=== PATIENT | female | born 1965 | race Two or more races ===

== ENCOUNTER 2018-08-04 08:17 | Day surgery (SDC) | payer OTHER ==
[~2018-08-04] VITALS: Ht 160 cm; Wt 72.6 kg
[2018-08-04] VITALS (8 sets, daily range): BP systolic 128–156; BP diastolic 53–89
[~2018-08-04 08:17] MED LIST: LR 1000ml 1,000 ML IVLG SCH
[2018-08-04] MEDS ORDERED: Propofol 200mg/20ml IV ONE (09:00)
[2018-08-04] MEDS ORDERED: Lidocaine 1% MPF 10mg/ml 5ml ONE (09:00)
[2018-08-04] MEDS ORDERED: LR 1000ml ONE (09:00)
[2018-08-04] MEDS ORDERED: METFORMIN HCL1000 M1 ORAL (09:16)
[2018-08-04] MEDS ORDERED: BENAZEPRIL HCL40 MG ORAL (09:20)
[2018-08-04] MEDS ORDERED: GLIPIZIDE5 MG ORAL (09:20)
[2018-08-04] MEDS ORDERED: ASPIR-LOW81 MG ORAL (09:20)
[2018-08-04] MEDS ORDERED: FERROUS SULFAT325 MG ORAL (09:20)
[2018-08-04] MEDS ORDERED: ZANTAC150 MG ORAL (09:21)
[2018-08-04] MEDS ORDERED: ATORVASTATIN CA40 MG ORAL (09:21)
--- NOTE | 2018-08-04 09:30 | Short Stay Surgery H&P ---
History of Present Illness History of Present Illness Chief Complaint Abdominal pains and GERDS HPI Bindu Moe is a 53 year old female who was admitted on for GERD/abdominal pains Patient History Allergies: Coded Allergies: No Known Allergies (Unverified , 08/03/18) PAST MEDICAL HISTORY: (1) Hypertension (2) H/O shoulder surgery (3) Diabetes Medication History Scheduled Aspirin* (Aspir-Low*), 81 MG ORAL DAILY, (Reported) Atorvastatin Calcium* (Atorvastatin Calcium*), 40 MG ORAL BEDTIME, (Reported) Benazepril Hcl* (Benazepril Hcl*), 40 MG ORAL DAILY, (Reported) Ferrous Sulfate* (Ferrous Sulfate*), 325 MG ORAL DAILY, (Reported) Glipizide* (Glipizide*), 4 MG ORAL DAILY, (Reported) Metformin Hcl* (Metformin Hcl*), 1,000 MG ORAL BID, (Reported) Ranitidine Hcl* (Zantac*), 150 MG ORAL DAILY, (Reported) Review of Systems Cardiovascular: Reports: no symptoms, hypertension Respiratory: Reports: no symptoms Skeletal: Reports: trauma Gastrointestinal: Reports: gastro esophageal reflux disease Genitourinary: Reports: no symptoms Neurologic: Reports: no symptoms Endocrine: Reports: diabetes - type 2 Hematologic: Reports: no symptoms Physical Exam Vital Signs Last Vital Signs Date Time Temp Pulse Resp B/P (MAP) Pulse Ox O2 Delivery O2 Flow Rate FiO2 08/04/18 09:24 Room Air 08/04/18 09:11 97.4 60 18 154/88 99 Labs Laboratory Tests Test 08/04/18 09:05 Urine HCG, Qualitative Pending Skin: normal HENT: normal Heart: normal Lungs: normal Abdomen: abnormal Extremities: normal Genitourinary: normal Plan Plan of Care Upper GI endoscopy and biopsy Preop Interventions None Summary of Findings see the reports Attestation Are the patient's medical conditions optimized for surgery? Attestation Response: yes Jasper Lazaro MD Aug 04, 2018 09:30
--- NOTE | 2018-08-04 09:31 | Pre-Procedure Note/Attestation ---
Pre-Procedure Note/Attestation Complete Prior to Procedure Planned Procedure: left Procedure Narrative: Examination of the upper GI tract via endoscopy Indications for Procedure Pre-Operative Diagnosis: R/O peptic ulcer/gastritis Attestation I attest that I discussed the nature of the procedure; its benefits; risks and complications; and alternatives (and the risks and benefits of such alternatives ), prior to the procedure, with the patient (or the patient's legal mechanical service representative). I attest that, if there was a reasonable possibility of needing a blood transfusion, the patient (or the patient's legal mechanical service representative) was given the [facility] standardized written summary, pursuant to the [place] Blood Safety Act ([place] Health and Safety Code # 1645, as amended). I attest that I re-evaluated the patient just prior to the surgery and that there has been no change in the patient's H&P, except as documented below: Jasper Lazaro MD Aug 04, 2018 09:31
--- NOTE | 2018-08-04 09:43 | Endoscopy Procedure Note ---
Endoscopy Procedure Note General Indication for Procedure: Abdominal pains/GERDS Procedures Performed: EGD - Mild gastritis with evidence of bile in stomach, otherwise normal upper GI endoscopy. Biopsy obtained from gastric body. Specimen: yes Pt Tolerated Procedure Well: Yes Estimated Blood Loss: none Anesthesia Anesthesiologist: Dr. Garcia Anesthesia: moderate sedation Medications Medication Given: see anesthesia record Inserted Devices Implant(s) used?: No Quality Quality of Bowel Preparation: Excellent Was there any complications?: No GI Core Measures 50 yrs or older w/o bx or poly: Not Applicable 10yrs. F/U not recommended: Not Applicable If not recommended, why?: Med reason:<3 yrs.: System Reason:<3 yrs.: Jasper Lazaro MD Aug 04, 2018 09:43
--- NOTE | 2018-08-04 09:44 | Discharge Instructions ---
Discharge Instructions Discharge Instructions Follow up with: See the doctor in office after 2 weeks For Congestive Heart Failure Reminder Report to your physician any weight gain of 5 pounds or more in one week. Jasper Lazaro MD Aug 04, 2018 09:44
--- NOTE | 2018-08-04 10:00 | Anethesia Preoperative Eval ---
Anesthesia Pre-op PMH/ROS General Date of Evaluation: Aug 04, 2018 Time of Evaluation: 09:18 Anesthesiologist: osiel ASA Score: ASA 3 Mallampati Score Class I : Soft palate, uvula, fauces, pillars visible Class II: Soft palate, uvula, fauces visible Class III: Soft palate, base of uvula visible Class IV: Only hard plate visible Mallampati Classification: Class II Surgeon: david Diagnosis: gerd Surgical Procedure: egd Anesthesia History: none Social History: smoking - nonsmoker Family History: no anesthesia problems Allergies: Coded Allergies: No Known Allergies (Unverified , 08/03/18) Medications: see eMAR Patient NPO?: Yes Past Medical History Cardiovascular: Reports: HTN, other - hypercholesterolemia Endocrine: Reports: DM PSxH Narrative: x 3 Anesthesia Pre-op Phys. Exam Physician Exam Last Vital Signs Date Time Temp Pulse Resp B/P (MAP) Pulse Ox O2 Delivery O2 Flow Rate FiO2 08/04/18 09:24 Room Air 08/04/18 09:11 97.4 60 18 154/88 99 Constitutional: NAD Neurologic: CN 2-12 intact Cardiovascular: RRR Respiratory: CTA Gastrointestinal: S/NT/ND Airway Exam Mallampati Score: Class II MO: full Neck: flexible TMD: 2fb ROM: full Dentures: lower Anesthesia Pre-op A/P Labs Urine Test Test 08/04/18 09:05 Urine HCG, Qualitative Negative (NEGATIVE) Risk Assessment & Plan Assessment: asa3 Plan: mac Status Change Before Surgery: No Pre-Antibiotics Drug: Emily Martins MD Aug 04, 2018 10:00
--- NOTE | 2018-08-04 10:01 | Immediate Post-Op Evaluation ---
Immediate Post-Op Evalulation Immediate Post-Op Evalulation Procedure: egd w/bx Date of Evaluation: Aug 04, 2018 Time of Evaluation: 10:02 IV Fluids: 250ml lr Blood Products: none Estimated Blood Loss: negligible Blood Pressure Systolic: 156 Blood Pressure Diastolic: 82 Pulse Rate: 79 Respiratory Rate: 18 O2 Sat by Pulse Oximetry: 99 Temperature (Fahrenheit): 98.2 Pain Score (1-10): 0 Nausea: No Vomiting: No Complications none Patient Status: awake, reacts, patent Hydration Status: adequate Drug: Emily Martins MD Aug 04, 2018 10:01
--- NOTE | 2018-08-04 10:04 | 48 Hour Post Anesthesia Eval ---
Post Anesthesia Evaluation Procedure: egd w/bx Date of Evaluation: Aug 04, 2018 Time of Evaluation: 10:04 Blood Pressure Systolic: 155 0: 82 Pulse Rate: 68 Respiratory Rate: 18 Temperature (Fahrenheit): 98.2 O2 Sat by Pulse Oximetry: 99 Airway: patent Nausea: No Vomiting: No Pain Intensity: 0 Hydration Status: adequate Cardiopulmonary Status: stable Mental Status/LOC: patient returned to baseline Post-Anesthesia Complications: none Follow-up care needed: N/A Emily Alvarado MD Aug 04, 2018 10:04
[2018-08-04] MEDS ORDERED: LR 1000ml 1,000 ML IVLG SCH (11:41)
[2018-08-04] MEDS ORDERED: fentaNYL 100 mcg/2 mL IV PRN (11:45)
[2018-08-04] MEDS ORDERED: DiphenhydrAMINE 50mg/ml Inj IVP PRN (11:45)
[2018-08-04] MEDS ORDERED: Atropine Inj 1mg/10ml Syr IV PRN (11:45)
[2018-08-04] MEDS ORDERED: Midazolam 2mg/2ml Inj IVP PRN (11:45)
--- NOTE | 2018-08-04 19:45 | Operative Note - Dictated ---
DATE OF OPERATION: 08/04/2018 SURGEON: Jasper Lazaro M.D. PROCEDURE: Esophagogastroduodenoscopy with biopsy. PREOPERATIVE DIAGNOSES: Abdominal pain, chronic gastroesophageal reflux, rule out nonsteroidal antiinflammatory drug-induced gastropathy, gastritis, and peptic ulcer disease. POSTOPERATIVE DIAGNOSES: Mild gastritis with evidence of bile in the stomach, otherwise normal upper gastrointestinal endoscopy. Biopsy was taken from gastric body. MEDICATION USED: Per Dr. Garcia, anesthesiologist. INSTRUMENT: GIF Olympus upper GI video endoscope. DESCRIPTION OF PROCEDURE: The patient after arriving in endoscopy unit, was told about risks and benefits of procedure, which she accepted and signed informed consent. She was then put on the left lateral decubitus position. After adequate IV sedation, the scope was gently passed through the cricopharyngeal area, was lodged into the upper esophagus and gradually advanced towards gastroesophageal junction. The entire length of the esophagus looked normal without any evidence of any pathology. No strictures or inflammatory process. GE junction also looked normal and there was no Milligan's or hiatal hernia. At this time, the scope was advanced into the stomach. Gastric cavity was distended and the examination of fundus and the body and the antrum revealed evidence of mild gastritis, mostly in the body of the stomach over the greater curvature. There was also a moderate amount of bile in the stomach consistent with duodenal gastric bile reflux. One random biopsy from gastric body was obtained in this area. Subsequently, the scope was passed through the antrum and from there into the pylorus. First and second portion of duodenum were all examined, which looked normal. The scope was then pulled back into the stomach. A retroflexion maneuver was applied. The area of the gastroesophageal junction was examined in a closer fashion, which revealed no other abnormalities. Finally, procedure was terminated. The patient tolerated the procedure well and left the endoscopy room in a good condition. Jasper Lazaro M.D. DR: MELI JOB#: [id number] CC:
--- NOTE | 2018-08-04 20:15 | Pre-op HX & Phy Repo 2 SIG ---
DATE OF ADMISSION: 08/04/2018 HISTORY OF PRESENT ILLNESS: The patient is a 53-year-old Austrian-speaking female, who is being seen prior to undergoing the procedure of upper GI endoscopy for which she has been scheduled to receive for evaluation of gastrointestinal condition that she has been complaining subsequent to a work injury that she has suffered. The patient basically complains that she is experiencing pain over the epigastric area and upper part of the abdomen, which is moderately severe at times and is recurring on an intermittent basis. She reports that subsequent to her work injury, she started to be treated with nonsteroidal anti-inflammatory agents after which she started to experience these gastrointestinal symptoms that she never had before. There is no complaint of vomiting, nausea, or GI bleeding such as hematemesis, melena, hematochezia. It is important to mention that the patient has been treated with Zantac (ranitidine), which seems to be controlling her symptoms at this time with less heartburn, but she is not to take it constantly. She also reported that subsequent to work injury, she has gained approximately 20 pounds. She denies having difficulty swallowing. It is important to mention that as I reported above that the patient has been receiving ibuprofen, naproxen, and similar compounds at least for 3 to 4 years as she said and the symptoms started after her injury which occurred in 2011, and subsequent to which she received all these medications. She denied having any Helicobacter pylori infection being diagnosed in the past as it was also reported by Dr. Potts and he has examination of breath test in this regard. As I mentioned, the patient was working as a signal person and during this process, she became injured particularly over the right knee and the right elbow for which she has received medications of nonsteroidal anti-inflammatory agents. PAST MEDICAL HISTORY: Diabetes mellitus, hypertension, and hyperlipidemia. PAST SURGICAL HISTORY: The patient has had history of and right shoulder surgery. ALLERGIES: None significant. HABITS: The applicant denies drinking alcohol or smoking cigarettes. MEDICATIONS: Currently are aspirin, Zantac, benazepril, and metformin. REVIEW OF SYSTEMS: Basically history of present illness. PHYSICAL EXAMINATION: GENERAL: Reveals alert, oriented, very pleasant female who does not seem to be in acute distress. She looks overweight. HEENT: Normocephalic. Pupils equal in size and reactive to light and accommodation. No visible jaundice. Buccal cavity - tongue midline, well hydrated. No ulcers. NECK: Supple. No JVD, thyromegaly, or adenopathy. CHEST: Clear to auscultation and percussion. No rales or rhonchi. HEART: S1, S2 normal. Regular rhythm. No gallops or murmur. ABDOMEN: Obese, but there is tender on palpation over the upper part of the abdomen, particularly epigastric area, but no masses noted. EXTREMITIES: Unremarkable. PRELIMINARY PREOPERATIVE IMPRESSION: 1. Epigastric pain of uncertain etiology, possibly related to chronic gastroesophageal acid reflux aggravated by side effects of NSAID medications, rule out underlying acid-induced gastropathy or peptic ulcer disease. 2. Hypertension, obesity, and diabetes mellitus. RECOMMENDATION: The applicant seems to be stable at this time to undergo the procedure of upper GI endoscopy for which she has been scheduled. She understands the risks and benefits and signed the consent. Said Rhett Lazaro DR: ARNOLDO JOB#: [id number] CC: DARIA
== END 2018-08-04 11:30 | disposition home or self-care (01) ==
LOC: GAS 08:17
DX: K29.70 Gastritis, unspecified, without bleeding (principal); K21.9 Gastro-esophageal reflux disease without esophagitis; Z87.11 Personal history of peptic ulcer disease; E11.9 Type 2 diabetes mellitus without complications; I10 Essential (primary) hypertension; E78.5 Hyperlipidemia, unspecified; Z79.82 Long term (current) use of aspirin; Z88.8 Allergy status to other drugs, medicaments and biological substances; E66.9 Obesity, unspecified; Z68.28 Body mass index [BMI] 28.0-28.9, adult
CPT/HCPCS: 81025; 82962; 94003; 94150